=== PATIENT | male | born 1985 | race Caucasian/White ===

== ENCOUNTER 2019-01-11 05:40 | Day surgery (SDC) | payer OTHER ==
[~2019-01-11] VITALS: Ht 177.8 cm; Wt 90.7 kg
[~2019-01-11 05:40] MED LIST: OMEPRAZOLE20 MG PO; TRAZODONE HCL50 MG PO
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
== END 2019-01-11 09:00 | disposition home or self-care (01) ==
LOC: DS 05:40 → OPS 05:40 → DS 06:45
PROVIDERS: Colon & Rectal Surgery
PROC: 065Y0ZC Destruction of Hemorrhoidal Plexus, Open Approach (ICD-10-PCS; principal; 2019-01-11 06:45)
DX: K64.8 Other hemorrhoids (principal); K64.4 Residual hemorrhoidal skin tags; K21.9 Gastro-esophageal reflux disease without esophagitis; Z88.5 Allergy status to narcotic agent; Z79.899 Other long term (current) drug therapy
CPT/HCPCS: 00902; 00914; J0696; J1644; J1885; J2250; J2405; J2704; J3010; J7120